=== PATIENT | female | born 1990 | race African-American/Black ===

== ENCOUNTER 2017-02-05 02:13 | Emergency (ER) ==
[2017-02-05] MEDS ORDERED: TYLENOL WITH CODEINE #3 PO ONE (02:40)
[2017-02-05] MEDS ORDERED: SUDAFED 12-HOUR PO ONE (02:40)
[2017-02-05] MEDS ORDERED: NAPROSYN PO ONE (02:41)
--- NOTE | 2017-02-05 02:41 | PROVIDER DOCUMENTATION ---
HPI-EENT General - General Source: patient - History of Present Illness-EENT General EENT Location: reports: ear (R), ear (L), nose, throat Quality of Pain: reports: aching Severity: reports: mild Onset/Duration: reports: 24 hours ago Timing: reports: still present Prearrival Treatment: Initiated over the counter meds Associated Symptoms: reports: cough, malaise, nasal congestion/drainage, sore throat. denies: facial pain/swelling Locality of Occurance: Home Similar Symptoms Previously?: No Recently seen or treated by another doctor?: No <Vickie Armstrong - Last Filed: 02/05/17 02:36> <Reddy Blount - Last Filed: 02/05/17 02:52> - General Chief Complaint: Flu Symptoms Stated Complaint: FLU SX Time Seen by Provider: 02/05/17 02:31 Allergies/Adverse Reactions: Patient Allergies Allergy/AdvReac Type Severity Reaction Status Date / Time No Known Allergies Allergy Verified 02/05/17 02:20 Home Medications: Home Medication List Medication Instructions Recorded Confirmed Last Taken Type Guaifenesin/Codeine [Robitussin-AC] 5 ml PO Q4H PRN PRN #6 oz 02/05/17 Unknown Rx Pseudoephedrine HCl [Sudafed 12 120 mg PO BID PRN #20 tablet.er 02/05/17 Unknown Rx Hour] - History of Present Illness-EENT General Nature of Presenting Problem: PT IS A 26YOF PRESENTING TO THE ED C/O URI. PT STATES SHE BEGAN FEELING BAD YESTERDAY WITH COUGH, CONGESTION, BILAT EAR ACHE, BODY ACHES AND NO OTHER COMPLAINTS AT THIS TIME (Vickie Armstrong) Review of Systems - Adult - REVIEW OF SYSTEMS - ADULT Constitutional: reports: see HPI, chills. denies: fever, fatique Eyes: reports: no symptoms reported Ears, Nose, Mouth & Throat: reports: see HPI, ear pain, sinus problem, throat pain Cardiovascular: reports: no symptoms reported Respiratory: reports: see HPI, cough. denies: dyspnea on exertion, shortness of breath Gastrointestinal: reports: no symptoms reported Genitourinary: reports: no symptoms reported Musculoskeletal: reports: no symptoms reported Integumentary: reports: no symptoms reported Neurological: reports: no symptoms reported Psychiatric: reports: no symptoms reported Endocrine: reports: no symptoms reported Hematologic/Lymphatic: reports: no symptoms reported Allergic/Immunologic: reports: no symptoms reported All Other Systems: Reviewed and Negative <Vickie Armstrong - Last Filed: 02/05/17 02:36> Past History - Adult - PAST MEDICAL HISTORY-ADULT Review of Records: reports: Old Records Reviewed, Nursing Assessment Review, Medications Reviewed, Social history reviewed & non-contributory. Major Childhood Illnesses: reports: denies history Cardiovascular: reports: denies history Respiratory: reports: asthma Gastrointestinal: reports: denies history Obstetrical/Gynecological: reports: denies history Genitourinary: reports: denies history Musculoskeletal: reports: denies history Neurological: reports: denies history Endocrine/Immune: reports: denies history Other Conditions: reports: denies history Additional History: vaginitis; hemorrhoids - PRIOR SURGERIES/PROCEDURES Surgical/Procedure History: reports: none - PRIOR HOSPITALIZATIONS Prior Hospitalizations: reports: none - IMMUNIZATION STATUS Childhood Immunizations: See Nurse Assessment Flu Vaccine: See Nurse Assessment - FAMILY HISTORY Family History: reviewed, not pertinent - SOCIAL HISTORY Smoking: denies, non-smoker Substance Use: none/never, denies Alcohol Use Frequency: never Living Situation: alone <Vickie Armstrong - Last Filed: 02/05/17 02:36> Physical Exam- EENT - Physical Exam EENT Initial Vital Signs Reviewed: Yes General Appearance: alert, mild distress. negative: appears well Eye Exam: bilateral eye: normal inspection, PERRL, EOMI Ear Exam: bilateral ear: auricle normal, canal normal, TM normal Nasal Exam: normal inspection Throat Exam: normal mouth inspection, pharynx tenderness. negative: pharynx normal Neck: non-tender, full range of motion, supple, normal inspection Respiratory: chest non-tender, lungs clear, normal breath sounds, no pleuratic chest pain, no respiratory distress, no accessory muscle use Cardiovascular: normal peripheral pulses, regular rate, rhythm, no edema, no gallop, no JVD, no murmur Abdominal Exam: normal bowel sounds, non tender, soft, no organomegaly, no pulsatile mass Lymphatic: no adenopathy Back Exam: normal inspection, no CVA tenderness, no vertebral tenderness Extremity: normal range of motion, non-tender, normal gait, normal inspection, no pedal edema, no calf tenderness, normal capillary refill, pelvis stable Integumentary: normal color, normal turgor, warm/dry 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 tested, grossly normal, no motor/sensory deficits Psych/Mental Status: normal mood/affect, normal thought content, normal thought process, oriented x 3 <Vickie Armstrong - Last Filed: 02/05/17 02:36> Progress <NathanielVickie - Last Filed: 02/05/17 02:36> <Reddy Blount - Last Filed: 02/05/17 02:52> - PLAN OF CARE/RESULTS Progress/Plan/Lab Results: Orders Category Date Time Status Flu [INFLUENZA SCREEN PL] Stat Lab 02/05/17 02:21 Received Acetaminophen with Codeine [Tylenol with Codeine #3] Med 02/05/17 02:40 Discontinued 1 each PO NOW ONE Naproxen [Naprosyn] Med 02/05/17 02:41 Discontinued 500 mg PO NOW ONE Pseudoephedrine E.r. [Sudafed 12-Hour] Med 02/05/17 02:40 Discontinued 120 mg PO NOW ONE Vital Signs - 24 hr 02/05/17 02:16 Temperature 98.2 F Pulse Rate 79 Respiratory 20 Rate Blood Pressure 111/72 O2 Sat by Pulse 98 Oximetry (Vickie Armstrong) Departure - Departure Time of Disposition Order: 02:44 Certified Medical Emergency: Emergent <Vickie Armstrong - Last Filed: 02/05/17 02:36> - Departure Time of Disposition Order: 02:52 Certified Medical Emergency: Emergent <Reddy Blount - Last Filed: 02/05/17 02:52> - Departure DIAGNOSIS: URI, acute Disposition: HOME 01 Condition: Stable Additional Instructions: ED Follow Up Instructions: You have been treated by a care provider in the Emergency Department. These instructions are being provided to you so you can have an understanding of how to care for yourself upon discharge. Upon discharge from the Emergency Department, you are responsible for making arrangements for follow-up care by a physician of your choice. Take all prescribed medications as directed. Return to the Emergency Department immediately for any new or worsening symptoms. You may call the Physician Referral phone number at [phone] to obtain a list of Physicians who are taking new patients. Prescriptions: Guaifenesin/Codeine [Robitussin-AC] 5 ml PO Q4H PRN PRN #6 oz PRN Reason: Cough Pseudoephedrine HCl [Sudafed 12 Hour] 120 mg PO BID PRN #20 tablet.er PRN Reason: Congestion Referrals: Luke Meza MD [STAFF PHYSICIAN] - None,PCP [Primary Care Provider] - Forms: Return to School/Parent Work Instructions: Pseudoephedrine extended-release tablets, Upper Respiratory Infection, Adult, [id number], Codeine; Guaifenesin oral solution or syrup Attestation - Scribe Verification/Attestation Scribe:: Vickie Armstrong Acting as Scribe for:: Reddy Blount Scribe documention review:: This chart was documented by a scribe and accurately reflects the service the provider performed and the decisions made by the provider. <Vickie Armstrong - Last Filed: 02/05/17 02:36> Physician Attestation - Physician Attestation I, the provider, attest to the following statement:: Reddy Blount Physician documentation Attestation:: This documentation recorded by the scribe accurately reflects the service I personally performed and the decisions made by me. <Vickie Armstrong - Last Filed: 02/05/17 02:36>
[2017-02-05 02:47] VITALS: BP 111/72
[2017-02-05] MEDS ORDERED: NAPROSYN ONE (02:49)
== END 2017-02-05 02:54 | disposition home or self-care (01) ==
LOC: P.ED 02:13
DX: J06.9 Acute upper respiratory infection, unspecified (principal); H92.03 Otalgia, bilateral; R05 Cough; R53.81 Other malaise; R09.81 Nasal congestion; J02.9 Acute pharyngitis, unspecified; R52 Pain, unspecified; R68.83 Chills (without fever)
CPT/HCPCS: 87804